=== PATIENT | male | born 1945 | race Caucasian/White ===

== ENCOUNTER 2019-10-16 01:00 | Inpatient (IN) | payer MEDICARE ==
[~2019-10-16] VITALS: Ht 180.3 cm; Wt 113.8 kg
[2019-10-16 01:50] LABS: BASOPHILS ABSOLUTE AUTO 0.08 K/mm3 (0.00-0.23); BASOPHILS PERCENT AUTO 1 % (0-2); EOSINOPHILS ABSOLUTE AUTO 0.18 K/mm3 (0.00-0.68); EOSINOPHILS PERCENT AUTO 3 % (0-6); Hematocrit 50.4 % (37.0-53.0); IMMATURE GRAN ABSOLUTE AUTO 0.05 K/mm3 (0.00-0.10); IMMATURE GRAN PERCENT AUTO 1 % (0-1); LYMPHOCYTES PERCENT AUTO 31 % (21-46); MONOCYTES ABSOLUTE AUTO 0.61 K/mm3 (0.16-1.47); MONOCYTES PERCENT AUTO 9 % (4-13); Mean Corpuscular HGB 33.2 pg (26.0-34.0); Mean Corpuscular HGB Conc 33.7 g/dL (31.5-36.5); Mean Corpuscular Volume 98 fL (80-100); Mean Platelet Volume 12.9 fL (9.1-12.4); NEUTROPHILS ABSOLUTE AUTO 3.75 K/mm3 (1.96-9.15); NEUTROPHILS PERCENT AUTO 55 % (41-73); Platelet Count 144 K/mm3 (150-400); RDW Coefficient Variation 13.5 % (11.7-14.2); RDW Standard Deviation 49.6 fL (35.1-46.3); Red Blood Cell Count 5.12 M/mm3 (4.30-5.90); White Blood Cell Count 6.77 K/mm3 (4.00-11.30)
[2019-10-16 02:03] LABS: International Normalized Ratio 0.98; Prothrombin Time Results 10.5 Sec (9.7-11.5)
[2019-10-16 02:09] LABS: Alanine Aminotransfer (ALT/SGP 79 U/L (12-78); Albumin, Blood 3.5 g/dL (3.4-5.0); Albumin/Globulin Ratio 0.9 (0.8-1.8); Alk Phos 160 U/L (50-136); Anion Gap 6 mmol/L (6-16); Aspartate Aminotrans (AST/SGOT 64 U/L (12-37); Bilirubin, Total 0.6 mg/dL (0.1-1.0); Blood Urea Nitrogen 14 mg/dL (8-24); Bun/Creatinine Ratio 16.8 (12.0-20.0); CO2, Blood 28 mmol/L (21-32); Calcium, Blood 8.7 mg/dL (8.5-10.1); Chloride, Blood 105 mmol/L (98-108); Creatinine, Blood 0.84 mg/dL (0.60-1.20); Globulin, Blood 4.1 g/dL (2.2-4.0); Glomerular Filtration Rate >60 (60-); Glucose, Blood 226 mg/dL (70-99); Sodium, Blood 139 mmol/L (136-145); Total Protein, Blood 7.6 g/dL (6.4-8.2)
[2019-10-16 02:17] LABS: Troponin I 0.671 ng/mL (0.000-0.040)
--- NOTE | 2019-10-16 05:00 | NUR ---
PT UP TO ICU 8 FROM [employer] VIA BED. PT A&O. SBP CURRENTLY 130-150, HR IN THE 70S. LUNG SOUNDS CLEAR, SPO2 >90% ON RA. R RADIAL TR BAND IN PLACE WITH 11CCS. PT IS TALKATIVE, HOWEVER IS WORD SEARCHING AND STATED THAT HE "KNOWS WHAT TO SAY, BUT CANT GET IT OUT". PT IS SOMEWHAT FRUSTRATED BY THAT AND STATED THAT THIS IS NOT TYPICAL FOR HIM. DURING ADMIT ATTEMPTED TO GET PT TO ASK HISTORY AND PHYSICAL QUESTIONS BUT PT HAD A HARD TIME ANSWERING QUESTIONS. PUPILS ARE EQUAL PT SMILE IS SYMMETRICAL AND STRENGTH IS EQUAL BILATERALLY. DR PAYNE VISITED PT. NO NEW ORDERS RECEIVED.
[2019-10-16 05:58] LABS: BASOPHILS ABSOLUTE AUTO 0.05 K/mm3 (0.00-0.23); BASOPHILS PERCENT AUTO 1 % (0-2); EOSINOPHILS ABSOLUTE AUTO 0.02 K/mm3 (0.00-0.68); EOSINOPHILS PERCENT AUTO 0 % (0-6); Hematocrit 47.8 % (37.0-53.0); Hemoglobin 15.9 g/dL (13.5-17.5); IMMATURE GRAN ABSOLUTE AUTO 0.08 K/mm3 (0.00-0.10); IMMATURE GRAN PERCENT AUTO 1 % (0-1); LYMPHOCYTES ABSOLUTE AUTO 1.03 K/mm3 (0.84-5.20); LYMPHOCYTES PERCENT AUTO 12 % (21-46); MONOCYTES ABSOLUTE AUTO 0.53 K/mm3 (0.16-1.47); MONOCYTES PERCENT AUTO 6 % (4-13); Mean Corpuscular HGB 33.1 pg (26.0-34.0); Mean Corpuscular HGB Conc 33.3 g/dL (31.5-36.5); Mean Corpuscular Volume 99 fL (80-100); NEUTROPHILS ABSOLUTE AUTO 6.64 K/mm3 (1.96-9.15); NEUTROPHILS PERCENT AUTO 80 % (41-73); Platelet Count 145 K/mm3 (150-400); RDW Coefficient Variation 13.5 % (11.7-14.2); RDW Standard Deviation 49.9 fL (35.1-46.3); Red Blood Cell Count 4.81 M/mm3 (4.30-5.90); White Blood Cell Count 8.35 K/mm3 (4.00-11.30)
[2019-10-16 05:59] LABS: Mean Platelet Volume 13.1 fL (9.1-12.4)
[2019-10-16 06:16] LABS: LDL/HDL RATIO 3.2; Magnesium, Blood 2.2 mg/dL (1.6-2.4); Very Low Density Lipoprot Chol 22 mg/dL (6-32)
[2019-10-16 06:17] LABS: Alanine Aminotransfer (ALT/SGP 91 U/L (12-78); Albumin, Blood 3.4 g/dL (3.4-5.0); Albumin/Globulin Ratio 0.9 (0.8-1.8); Alk Phos 137 U/L (50-136); Anion Gap 9 mmol/L (6-16); Aspartate Aminotrans (AST/SGOT 260 U/L (12-37); Bilirubin, Total 0.9 mg/dL (0.1-1.0); Blood Urea Nitrogen 12 mg/dL (8-24); CHOL/HDL RATIO 4.7; CO2, Blood 25 mmol/L (21-32); Calcium, Blood 8.6 mg/dL (8.5-10.1); Chloride, Blood 104 mmol/L (98-108); Cholesterol 197 mg/dL (50-200); Creatinine, Blood 0.75 mg/dL (0.60-1.20); Globulin, Blood 3.7 g/dL (2.2-4.0); Glomerular Filtration Rate >60 (60-); Glucose, Blood 231 mg/dL (70-99); HDL Cholesterol 42 mg/dL (>39); Low Density Lipoprotein Chol 133 mg/dL (0-110); Potassium, Blood 4.3 mmol/L (3.5-5.5); Sodium, Blood 138 mmol/L (136-145); Total Protein, Blood 7.1 g/dL (6.4-8.2); Triglycerides 112 mg/dL (30-160)
--- NOTE | 2019-10-16 08:00 | NUR ---
PT A&0X4. PT VERY TALKATIVE. DENIES CP OR NAUSEA. ECG SHOWS SR WITH FIRST DEGREE AV BLOCK. BP TRENDING 180'S/100'S. SCHEDULED DOSE OF ZESTRIL GIVEN-SEE EMAR. TR BAND TO RIGHT RADIAL SITE WITH 9CC AIR TO CUFF. ARMBOARD IN PLACE. PT GIVEN FREQUENT REMINDERS TO NOT USE HIS RIGHT ARM. DESPITE VERBALIZING UNDERSTANDING, PT CONTINUES TO USE HIS RIGHT ARM. RIGHT RADIAL SITE REMAINS CLEAR, NO BLEEDING OR HEMATOMA. RIGHT HAND PINK AND WARM-SPO2 WITH GOOD PLETH. LUNGS CLEAR. SATS>90% ON RA. CARDIAC BREAKFAST TRAY GIVEN. PT DAUGHTER, EKRI CALLED AND UPDATED PER PT REQUEST.
--- NOTE | 2019-10-16 10:23 | NUR ---
DR. PAYNE NOTIFIED THAT PT REMAINS HYPERTENSIVE. UPDATED TO CURRENT VS AND STATUS. MD AWARE THAT TR BAND REMAINS IN PLACE PT CONTINUES TO USE HIS RIGHT ARM DESPITE CONTINUAL REMINDERS NOT TO DO SO. ORDER GIVEN TO GIVE AMLODIPINE 10 MG PO NOW X 1, THEN DAILY THEREAFTER.
--- NOTE | 2019-10-16 11:31 | NUR ---
DR. PAYNE CONTACTED REGARDING CONTINUED HYPERTENSION AND PT NOW REPORTING LEFT CHEST TIGHTNESS 2/10 THAT RADIATES TO LEFT SCAPULA. PT PLACED ON 2 LITERS NASAL CANULA. ORDER GIVEN BY DR. PAYNE TO INITIATE NITRO DRIP.
--- NOTE | 2019-10-16 12:40 | NUR ---
NITROGLYCERIN TITRATED UP TO 40 MCG/MIN IN ORDER TO GET SBP 140'S. CHRIS FROM LAB ANMOL TROPONIN. SHORTLY AFTER BLOOD DRAW, PT REPORTED TO CHRIS THAT HE DIDN'T FEEL QUITE RIGHT AND WAS NAUSEATED. CHRIS SUMMONED RN INTO ROOM. PT PALE AND DIAPHORETIC. HR 50'S, AND SBP 80'S. NITRO DRIP DISCONTINUED, NS 250 BOLUS INITIATED,& 12 LEAD ECG DONE. PT MED WITH ZOFRAN IV FOR NAUSEA. DR. PAYNE PRESENT AT BEDSIDE @ 1250. STAT ECHO AND H&H ORDERED. ONCE APROX. 100 CC OF BOLUS INFUSED AND NIRTO DRIP DISCONTINUED FOR APROX 5-10 MINUTES, SBP 110'S.
[2019-10-16 13:09] LABS: Hematocrit 46.3 % (37.0-53.0); Hemoglobin 15.4 g/dL (13.5-17.5)
--- NOTE | 2019-10-16 17:15 | NUR ---
PT HAS RESTED QUIETLY FOR MOST OF THE AFTERNOON AND EARLY EVENING. PT DENIES PAIN OF SOB. SBP TRENDING 140-150'S. RIGHT RADIAL TR BAND REMOVED AND OCCLUSIVE DRESSING PLACED. NO ACUTE BLEEDING OR HEMATOMA. ARMBOARD REMAINS IN PLACE. RIGHT HAND REMAINS PINK AND WARM. NO NUMBNESS OR TINGLING. SPO2 WITH GOOD PLETH.
--- NOTE | 2019-10-16 17:48 | NUR ---
ASSISTED OOB TO CHAIR FOR DINNER. GOWN AND LINEN CHANGE COMPLETED BY MELINDA COBURN. RIGHT RADIAL SITE REMAINS CLEAR-NO BLEEDING OR HEMATOMA. PT TOLERATED WELL.
--- NOTE | 2019-10-16 21:06 | NUR ---
PATIENT RESTING QUIETLY IN BED. WHEN SLEEPING HAS SLIGHT SNORING RESP WITH BIOX OCCASIONALLY DROPPING TO 89% ON RA. RIGHT WRIST WITH BRACE IN PLACE DRESSING TO RIGHT WRIST CD&I NO SWELLING OR OOZING SEEN. PATIENT NEEDING FREQUENT REMINDING TO NOT PUT ANY WEIGHT ON THAT HAND OR WRIST. PATIENT UP TO BSC WITH MIN ASSIST. NOT ABLE TO HAVE BM AT THIS TIME, PASSING FLATUS. NO C/O CHEST PAIN OF OR SOB WITH GETTING UP. C/O PAIN TO LEFT LEG WHICH IS CHRONIC IN NATURE FROM HX OF LUI, AND LYMPHEDEMA.
--- NOTE | 2019-10-16 21:30 | NUR ---
DOCTOR KERRY NOTIFIED OF CONTINUED HYPERTENSION ZESTRIL 5MG PO GIVEN TO EQUIL 10MG FOR TODAY.
--- NOTE | 2019-10-17 05:12 | NUR ---
SUMMARY PATIENT RESTING QUIETLY T/O NIGHT. RIGHT WRIST WITH DRESSING CD&I NO SWELLING OR OOZING SEEN. ARM BOARD REMAINS IN PLACE, PATIENT DOING BETTER WITH NOT USING THE RIGHT HAND OR WRIST. CONTINUES TO HAVE NO COMPLAINTS OF CHEST PAIN. PATIENT ABLE TO AMBULATE TO TOILET WITH MINIMAL ASSIST.
--- NOTE | 2019-10-17 07:15 | NUR ---
BEGINNING OF SHIFT Assumed care at 0700. Bedside report recieved from Penny LAWRENCE. Pt A&O x 4. On room air. SR per monitor with first degree HB. BP stable. Denies chest pain or shortness of breath. Bed in lowest position. Call light in reach. Pt denies need at this time.
--- NOTE | 2019-10-17 09:30 | NUR ---
DR PAYNE IN TO SEE PT States pt will be PCU status. Expected discharge tomorrow. EKG obtained.
[2019-10-17 10:00] LABS: BASOPHILS ABSOLUTE AUTO 0.05 K/mm3 (0.00-0.23); BASOPHILS PERCENT AUTO 1 % (0-2); EOSINOPHILS ABSOLUTE AUTO 0.07 K/mm3 (0.00-0.68); EOSINOPHILS PERCENT AUTO 1 % (0-6); Hematocrit 46.1 % (37.0-53.0); Hemoglobin 15.1 g/dL (13.5-17.5); IMMATURE GRAN ABSOLUTE AUTO 0.05 K/mm3 (0.00-0.10); IMMATURE GRAN PERCENT AUTO 1 % (0-1); LYMPHOCYTES PERCENT AUTO 15 % (21-46); MONOCYTES ABSOLUTE AUTO 0.72 K/mm3 (0.16-1.47); MONOCYTES PERCENT AUTO 10 % (4-13); Mean Corpuscular HGB 32.9 pg (26.0-34.0); Mean Corpuscular HGB Conc 32.8 g/dL (31.5-36.5); Mean Corpuscular Volume 100 fL (80-100); NEUTROPHILS ABSOLUTE AUTO 5.46 K/mm3 (1.96-9.15); NEUTROPHILS PERCENT AUTO 73 % (41-73); Platelet Count 129 K/mm3 (150-400); RDW Coefficient Variation 13.9 % (11.7-14.2); RDW Standard Deviation 51.4 fL (35.1-46.3); Red Blood Cell Count 4.59 M/mm3 (4.30-5.90); White Blood Cell Count 7.45 K/mm3 (4.00-11.30)
[2019-10-17 10:20] LABS: Anion Gap 6 mmol/L (6-16); Blood Urea Nitrogen 9 mg/dL (8-24); Bun/Creatinine Ratio 12.7 (12.0-20.0); CO2, Blood 27 mmol/L (21-32); Calcium, Blood 8.5 mg/dL (8.5-10.1); Chloride, Blood 105 mmol/L (98-108); Creatinine, Blood 0.71 mg/dL (0.60-1.20); Glomerular Filtration Rate >60 (60-); Glucose, Blood 253 mg/dL (70-99); Potassium, Blood 4.2 mmol/L (3.5-5.5); Sodium, Blood 138 mmol/L (136-145)
--- NOTE | 2019-10-17 18:21 | NUR ---
SUMMARY No acute changes to initial assessment. Pt A&O x 4. SpO2 90% or greater RA. SR with first degree AV block. BP stable. OOB several times this shift to use bathroom. Tolerates activity well without any chest pain or shortness of breath. Right transradial access dressing C/D/I. Free of drainage, bruising, or hematoma. Color, sensation, distal pulses, capillary refill equal BUE. Will continue to closely monitor until care handoff and bedside report with oncoming RN.
--- NOTE | 2019-10-17 20:37 | NUR ---
PATIENT RESTING IN BED WATCHING TABLET, NO C/O PAIN. REPOSITIONING SELF IN BED WITHOUT DIFFICULTY. RIGHT WRIST WITH DRESSING CD&I WITH NO SWELLING OR OOZING SEEN. PATIENT NOW PCU STATUS.
--- NOTE | 2019-10-18 05:06 | NUR ---
SUMMARY PATIENT SLEEPING OFF AND ON T/O NIGHT. ABLE TO BE INDEPENDENT IN THE ROOM. NO C/O PAIN OR SOB. RIGHT WRIST SITE WITH DRESSING CD&I WITH NO SWELLING OR OOZING SEEN.
[2019-10-18] MEDS ORDERED: AMLO10 PO (10:18)
[2019-10-18] MEDS ORDERED: Aspir 8181 MG PO (10:18)
[2019-10-18] MEDS ORDERED: ATOR80 PO (10:19)
[2019-10-18] MEDS ORDERED: Prinivil10 MG PO (10:19)
[2019-10-18] MEDS ORDERED: TICA90TA PO (10:19)
[2019-10-18] MEDS ORDERED: METF500 PO (10:20)
--- NOTE | 2019-10-18 12:36 | NUR ---
DISCHARGE INSTRUCTIONS GONE OVER WITH PT. CALLED TRANSPORTATION PLANNING ENGINEER TO ASSIST WITH DIABETES EDUCATION. INSTRUCTED PT ON ESTABLISH PCP AND SEEK FOLLOW UP CARE. INSTRUCTED PT ON FOLLOW UP APPT WITH DR PAYNE. PROVIDED IN DEPTH EDUCATION ON NEW PRESCRIPTIONS AND HOW TO OBTAIN THEM. PT STATED UNDERSTANDING. BELONGINGS GATHERED AND GIVEN TO PT. PT ESCORTED OUT VIA WHEELCHAIR TO FAMILY BY SUMIT AGUILAR.
--- NOTE | 2019-10-18 16:49 | NUR ---
Met with Mr. Becker to offer prayer and outreach counselor. He explained that he lsot his beloved 3 years ago and suspects he is still grieving. I provided breavement education and gentle outreach counselor to good effect. He admitted to me that he is facing a great deal of change. He was tearful and clearly overwhelmed. He was also in the process of being d/c'd. Prayer provided and I gave him my contact information for bereavement outreach counselor.
== END 2019-10-18 12:30 | disposition home or self-care (01) | DRG 247 ==
LOC: ER 01:00 → ICUE 01:30 → ICUW 01:30 → ICUE 03:09
PROVIDERS: Emergency Medicine; ADMIT Internal Medicine Interventional Cardiology
PROC: 4A023N7 Measurement of Cardiac Sampling and Pressure, Left Heart, Percutaneous Approach (ICD-10-PCS; principal; 2019-10-16)
PROC: 0271366 Dilation of Coronary Artery, Two Arteries, Bifurcation, with Three Drug-eluting Intraluminal Devices, Percutaneous Approach (ICD-10-PCS; 2019-10-16)
PROC: B2111ZZ Fluoroscopy of Multiple Coronary Arteries using Low Osmolar Contrast (ICD-10-PCS; 2019-10-16)
PROC: B241ZZ3 Ultrasonography of Multiple Coronary Arteries, Intravascular (ICD-10-PCS; 2019-10-16)
DX: I21.02 ST elevation (STEMI) myocardial infarction involving left anterior descending coronary artery (principal); I10 Essential (primary) hypertension; E66.9 Obesity, unspecified; Z68.39 Body mass index [BMI] 39.0-39.9, adult; E78.5 Hyperlipidemia, unspecified; E11.9 Type 2 diabetes mellitus without complications; I44.0 Atrioventricular block, first degree; Z79.84 Long term (current) use of oral hypoglycemic drugs; Z79.82 Long term (current) use of aspirin
CPT/HCPCS: 36415; 71045; 76937; 80048; 80053; 80061; 83036; 83735; 84484; 85014; 85018; 85025; 85347; 85610; 85730; 92978; 92979; 93005; 93010; 93306; 93454; 93458; 96374; 96375; 99152; 99153; 99285-25; A9270-GY; C1725; C1751; C1753; C1769; C1874; C1887; C1894; C9601; C9606; J1644; J1650; J2250; J2405; J3010; J3246; J7030; Q9967

== ENCOUNTER 2020-06-19 06:23 | Day surgery (SDC) | payer MEDICARE ==
[~2020-06-19] VITALS: Ht 177.8 cm; Wt 109.4 kg
[~2020-06-19 06:23] MED LIST: AMLO10 PO; ATOR80 PO; Aspir 8181 MG PO; METF500 PO; Prinivil10 MG PO; TICA90TA PO
--- NOTE | 2020-06-19 07:23 | NUR ---
06/19/20 0723 Betty Nuñez 2 IV ATTEMPTS BY [facility], 1ST ATTEMPT IN HAND WAS TOO PAINFUL AND 2ND IV ATTEMPT IN L FOREARM WAS SUCCESSFUL
--- NOTE | 2020-06-19 08:55 | NUR ---
06/19/20 0855 SANDRA CHINO PT UP TO RECLINER WITH SBA. VSS ON ROOM AIR. TOLERATING PO INTAKE. EYE SHIELD IN PLACE. PT DENIES PAIN/NAUSEA AT THIS TIME. ENGAGED IN DC TEACHING AND ALL QUESTIONS ASKED AND ANSWERED. IV DC'D. PT DC AMB TO VEHICLE.
== END 2020-06-19 08:54 | disposition home or self-care (01) ==
LOC: ORSCSDS 06:23
PROVIDERS: Ophthalmology
PROC: 08RJ3JZ Replacement of Right Lens with Synthetic Substitute, Percutaneous Approach (ICD-10-PCS; principal; 2020-06-19 07:30)
DX: H25.11 Age-related nuclear cataract, right eye (principal); I10 Essential (primary) hypertension; E11.9 Type 2 diabetes mellitus without complications; Z79.899 Other long term (current) drug therapy; E66.9 Obesity, unspecified; Z68.34 Body mass index [BMI] 34.0-34.9, adult
CPT/HCPCS: 82947; J2250; J3010; J3301; J7040; V2632